=== PATIENT | female | born 1955 | race Caucasian/White ===

== ENCOUNTER 2017-11-08 11:12 | Inpatient (IN) | payer BC ==
[~2017-11-08] VITALS: Ht 165.1 cm; Wt 66.7 kg
[2017-11-08 11:47] LABS: CLARITY,URINE CLEAR (Clear); COLOR,URINE YELLOW (Yellow); GLUCOSE, URINE NEGATIVE (Neg); KETONES,URINE NEGATIVE (Neg); LEUKOCYTE ESTERASE ,URINE NEGATIVE (Neg); NITRITES, URINE NEGATIVE (Neg); OCCULT BLOOD,URINE NEGATIVE (Neg); PROTEIN,URINE NEGATIVE (Neg); UROBILINOGEN,URINE 0.2 E.U/dL (0.2-1.0)
[2017-11-08 11:49] LABS: UA COLLECTION TYPE CLN CATCH MIDSTREAM
[2017-11-08] MEDS ORDERED: LEVO150T61 PO (12:54)
[2017-11-08] MEDS ORDERED: ASCO10007 PO (12:54)
[2017-11-08] MEDS ORDERED: CHOL50004 PO (12:54)
[2017-11-08] MEDS ORDERED: OMEG-143 PO (12:54)
[2017-11-08] MEDS ORDERED: ASPI-1264 PO (12:54)
[2017-11-12] VITALS (17 sets, daily range): BP systolic 117–136; BP diastolic 54–88
[2017-11-12] MEDS ORDERED: ringers solution, lacted 1,000 ML IV SCH (05:00)
[2017-11-12] MEDS ORDERED: tranexamic acid inj. 1,000 MG in normal saline 100ml IV soln 90 ML IV ONE (05:30)
[2017-11-12] MEDS ORDERED: gabapentin 300mg capsule PO ONE (05:30)
[2017-11-12] MEDS ORDERED: oxyCODONE SR 10mg (sust. release) tab PO ONE (05:30)
[2017-11-12] MEDS ORDERED: acetaminophen 325mg tablet PO ONE (05:30)
[2017-11-12] MEDS ORDERED: famotidine 20mg tablet PO ONE (05:30)
[2017-11-12] MEDS ORDERED: ceFAZolin inj. 2,000 MG in dextrose 5%-water 100 ML IV SCH (05:30)
[2017-11-12] MEDS ORDERED: ceFAZolin inj. 2,000 MG in dextrose 5%-water 100 ML IV ONE (05:58)
[2017-11-12] MEDS ORDERED: LIDOcaine 1% (10mg/ml) 2ml vial ONE (06:00)
[2017-11-12] MEDS ORDERED: ROPIVAcaine 0.5% (5mg/ml) 30ml vial ONE ×2 (06:41→07:03)
[2017-11-12] MEDS ORDERED: bacitracin inj 150,000 UNIT in sodium chloride irrig. sol 3,000 ML IR ONE (07:00)
[2017-11-12] MEDS ORDERED: BUPIVAcaine 0.5% inj/PF 30 ml vial ONE (07:03)
[2017-11-12] MEDS ORDERED: propofol 1000mg/100ml bottle 100 ML IV ONE (07:04)
[2017-11-12] MEDS ORDERED: MIDAZolam 1mg/ml 10ml vial ONE (07:09)
[2017-11-12] MEDS ORDERED: morphine /PF 1mg/ml 10ml inj. ONE (07:18)
[2017-11-12] MEDS ORDERED: ringers solution, lacted 1,000 ML IV ONE (07:54)
[2017-11-12] MEDS ORDERED: meperidine/PF 50mg/ml syringe IV ONE (07:55)
[2017-11-12] MEDS ORDERED: ondansetron/PF 4mg/2ml inj IV PRN ×2 (07:55)
[2017-11-12] MEDS ORDERED: hydrALAZINE 20mg/ml inj. IV PRN (07:55)
[2017-11-12] MEDS ORDERED: labetalol 20mg/4ml (5mg/ml) syringe IV PRN (07:55)
[2017-11-12] MEDS ORDERED: diphenhydrAMINE 50 mg/ml inj IV PRN (07:55)
[2017-11-12] MEDS ORDERED: meperidine/PF 50mg/ml syringe IV PRN ×2 (07:55)
[2017-11-12] MEDS ORDERED: morphine 4 MG/ML inj SYRINge IV PRN ×2 (07:55)
[2017-11-12] MEDS ORDERED: ceFAZolin 1000mg inj ONE (08:56)
[2017-11-12] MEDS ORDERED: magnesium hydroxide 30ml (MOM) UD suspension PO PRN (09:25)
[2017-11-12] MEDS ORDERED: diphenhydrAMINE 25mg capsule PO PRN ×2 (09:25)
[2017-11-12] MEDS ORDERED: acetaminophen 325mg tablet PO PRN (09:25)
[2017-11-12] MEDS ORDERED: HYDROmorphone inj. 0.5 MG/0.5 ML DISP.SYRIN IV PRN (09:25)
[2017-11-12] MEDS ORDERED: bisacodyl 10mg suppository rectal RC PRN (09:25)
[2017-11-12] MEDS: potassium cl 20mEq in 1/2 NS 1,000 ML IV SCH ×2 (11:13→20:14)
[2017-11-12] MEDS: gabapentin 300mg capsule PO SCH ×2 (13:48→20:15)
[2017-11-12] MEDS: oxyCODONE/APAP 10/325mg tablet PO PRN ×3 (13:52→22:05)
[2017-11-12] MEDS: ceFAZolin 1GM/D5W- ADD-VANTAGE 50 ML IV SCH (16:28)
[2017-11-12] MEDS: ondansetron/PF 4mg/2ml inj IV PRN ×2 (16:38→22:08)
[2017-11-12] MEDS ORDERED: proCHLORperazine 10 MG/2 ml inj IV PRN ×2 (18:00→20:50)
[2017-11-12] MEDS ORDERED: MORPHINE 2MG in 2ml NS syringe IV PRN (18:00)
[2017-11-12] MEDS: sennosides 8.6mg tablet PO SCH (20:14)
[2017-11-12] MEDS: ascorbic acid 500mg tablet PO SCH (20:15)
[2017-11-13] MEDS: ceFAZolin 1GM/D5W- ADD-VANTAGE 50 ML IV SCH (00:16)
[2017-11-13] MEDS: potassium cl 20mEq in 1/2 NS 1,000 ML IV SCH ×4 (01:23→19:42)
[2017-11-13 02:00] VITALS: BP 100/47
[2017-11-13] MEDS: oxyCODONE/APAP 10/325mg tablet PO PRN ×2 (02:42→07:44)
[2017-11-13 05:44] LABS: BASOPHILS % (AUTO) 0.1 % (0-1); EOSINOPHILS # (AUTO) 0.1 X10'3 (0-0.9); EOSINOPHILS % (AUTO) 1.8 % (0-6); HEMOGLOBIN 11.2 g/dl (12.0-16.0); LYMPHOCYTES # (AUTO) 1.3 X10'3 (1.1-4.8); LYMPHOCYTES % (AUTO) 19.6 % (21-51); MEAN CORPUSCULAR HEMOGLOBIN 31.7 PG (27.0-31.0); MEAN CORPUSCULAR HGB CONC 35.1 % (33.0-36.5); MEAN CORPUSCULAR VOLUME 90.5 FL (78-98); MEAN PLATELET VOLUME 8.4 FL (7.4-10.4); MONOCYTES # (AUTO) 0.7 X10'3 (0-0.9); MONOCYTES % (AUTO) 11.4 % (2-12); NEUTROPHILS # (AUTO) 4.3 X10'3 (1.8-7.7); NEUTROPHILS % (AUTO) 67.1 % (42-75); PLATELET COUNT 157 X10'3 (140-440); RED BLOOD COUNT 3.53 X10'6 (4.20-5.60); RED CELL DISTRIBUTION WIDTH 12.7 % (11.5-14.5); WHITE BLOOD COUNT 6.4 X10'3 (4.5-11.0)
[2017-11-13 05:54] LABS: INR 1.3 INR; PROTHROMBIN TIME 13.4 SECONDS (9.0-12.0)
[2017-11-13 05:56] LABS: ANION GAP 3 (8-16); CHLORIDE 103 MMOL/L (99-107); POTASSIUM 4.4 MMOL/L (3.5-5.1); SODIUM 136 MMOL/L (135-145); TOTAL CARBON DIOXIDE 29.7 MMOL/L (24-32)
[2017-11-13 06:26] VITALS: BP 106/48
[2017-11-13] MEDS: gabapentin 300mg capsule PO SCH ×3 (07:40→19:41)
[2017-11-13] MEDS: multivitamins, therapeutics tablet PO SCH (07:40)
[2017-11-13] MEDS: ascorbic acid 500mg tablet PO SCH ×2 (07:40→19:41)
[2017-11-13] MEDS: levoTHYROXINE 75mcg tablet PO SCH (07:43)
[2017-11-13 10:00] VITALS: BP 126/77
[2017-11-13] MEDS ORDERED: warfarin 5mg tablet PO ONE (10:00)
[2017-11-13] MEDS ORDERED: celeCOXIB 100mg capsule PO ONE (10:50)
[2017-11-13 14:00] VITALS: BP 122/52
[2017-11-13] MEDS ORDERED: Protein Shake (high protein) 240ml (8oz) cup PO SCH (18:00)
[2017-11-13] MEDS: celeCOXIB 100mg capsule PO SCH (19:41)
[2017-11-13] MEDS: sennosides 8.6mg tablet PO SCH (19:42)
[2017-11-13 22:00] VITALS: BP 130/59
[2017-11-14] MEDS: potassium cl 20mEq in 1/2 NS 1,000 ML IV SCH (03:07)
[2017-11-14] MEDS: oxyCODONE/APAP 10/325mg tablet PO PRN (05:30)
[2017-11-14 06:00] VITALS: BP 152/59
[2017-11-14 06:16] LABS: INR 1.5 INR; PROTHROMBIN TIME 15.8 SECONDS (9.0-12.0)
[2017-11-14 06:18] LABS: BASOPHILS % (AUTO) 0.4 % (0-1); EOSINOPHILS # (AUTO) 0.2 X10'3 (0-0.9); EOSINOPHILS % (AUTO) 2.6 % (0-6); HEMATOCRIT 33.4 % (35.0-45.0); HEMOGLOBIN 11.4 g/dl (12.0-16.0); LYMPHOCYTES # (AUTO) 1.2 X10'3 (1.1-4.8); MEAN CORPUSCULAR HEMOGLOBIN 31.8 PG (27.0-31.0); MEAN CORPUSCULAR HGB CONC 34.2 % (33.0-36.5); MEAN CORPUSCULAR VOLUME 92.9 FL (78-98); MEAN PLATELET VOLUME 8.5 FL (7.4-10.4); MONOCYTES # (AUTO) 0.8 X10'3 (0-0.9); MONOCYTES % (AUTO) 12.8 % (2-12); NEUTROPHILS % (AUTO) 64.2 % (42-75); PLATELET COUNT 164 X10'3 (140-440); RED CELL DISTRIBUTION WIDTH 12.6 % (11.5-14.5); WHITE BLOOD COUNT 6.2 X10'3 (4.5-11.0)
[2017-11-14] MEDS ORDERED: ASPI-1 PO (07:34)
[2017-11-14] MEDS ORDERED: CELE-193 PO (08:12)
[2017-11-14] MEDS: ascorbic acid 500mg tablet PO SCH (09:01)
[2017-11-14] MEDS: levoTHYROXINE 75mcg tablet PO SCH (09:01)
[2017-11-14] MEDS: celeCOXIB 100mg capsule PO SCH (09:02)
[2017-11-14] MEDS: gabapentin 300mg capsule PO SCH (09:02)
[2017-11-14] MEDS: multivitamins, therapeutics tablet PO SCH (09:02)
[2017-11-14] MEDS ORDERED: acetaminophen 325mg tablet PO PRN (09:25)
[2017-11-14] MEDS ORDERED: warfarin 3mg tablet PO ONE (10:00)
== END 2017-11-14 11:10 | disposition home health service (06) | DRG 470 ==
LOC: EDSTATUS 13:50 → PAS IN 11-12 05:21 → EDSTATUS 11-12 07:30 → ORTHO 4S 11-12 10:45
PROVIDERS: ADMIT Specialist; ATTEND Specialist
PROC: 0SRD0J9 Replacement of Left Knee Joint with Synthetic Substitute, Cemented, Open Approach (ICD-10-PCS; principal; 2017-11-12 07:05)
DX: M17.0 Bilateral primary osteoarthritis of knee (principal); D62 Acute posthemorrhagic anemia; E03.9 Hypothyroidism, unspecified; Z87.891 Personal history of nicotine dependence; Z79.899 Other long term (current) drug therapy; Z79.82 Long term (current) use of aspirin
CPT/HCPCS: 36415; 71046; 73560; 80051; 81003; 85025; 85610; 87070; 97110; 97116; 97162; 97530; A6449; A6455; A7000; C1713; C1758; C1776; J0690; J2250; J2274; J2405; J2704; J2795; J3490; J7030; J7060; J7120

== ENCOUNTER 2018-03-11 08:09 | Outpatient (CLI) | payer BC ==
[~2018-03-11 08:09] MED LIST: ASCO10007 PO; CHOL50004 PO; LEVO150T61 PO; OMEG-143 PO
[2018-03-11 09:02] LABS: BASOPHILS % (AUTO) 0.4 % (0-1); EOSINOPHILS # (AUTO) 0.1 X10'3 (0-0.9); EOSINOPHILS % (AUTO) 2.1 % (0-6); HEMATOCRIT 39.2 % (35.0-45.0); HEMOGLOBIN 13.3 g/dl (12.0-16.0); LYMPHOCYTES # (AUTO) 1.5 X10'3 (1.1-4.8); LYMPHOCYTES % (AUTO) 33.6 % (21-51); MEAN CORPUSCULAR HEMOGLOBIN 30.8 PG (27.0-31.0); MEAN CORPUSCULAR VOLUME 90.7 FL (78-98); MEAN PLATELET VOLUME 8.3 FL (7.4-10.4); MONOCYTES # (AUTO) 0.4 X10'3 (0-0.9); NEUTROPHILS # (AUTO) 2.5 X10'3 (1.8-7.7); NEUTROPHILS % (AUTO) 55.9 % (42-75); PLATELET COUNT 208 X10'3 (140-440); RED BLOOD COUNT 4.32 X10'6 (4.20-5.60); RED CELL DISTRIBUTION WIDTH 12.3 % (11.5-14.5); WHITE BLOOD COUNT 4.5 X10'3 (4.5-11.0)
[2018-03-11 09:03] LABS: CLARITY,URINE CLEAR (Clear); COLOR,URINE YELLOW (Yellow); GLUCOSE, URINE NEGATIVE (Neg); KETONES,URINE NEGATIVE (Neg); LEUKOCYTE ESTERASE ,URINE NEGATIVE (Neg); NITRITES, URINE NEGATIVE (Neg); OCCULT BLOOD,URINE NEGATIVE (Neg); PROTEIN,URINE NEGATIVE (Neg); UROBILINOGEN,URINE 0.2 E.U/dL (0.2-1.0)
[2018-03-11 09:04] LABS: UA COLLECTION TYPE CLN CATCH MIDSTREAM
[2018-03-11 09:09] LABS: INR 0.9 INR; PROTHROMBIN TIME 9.8 SECONDS (9.0-12.0)
[2018-03-11 09:22] LABS: ALANINE AMINOTRANSFERASE 23 U/L (12-78); ALBUMIN 3.7 G/DL (3.4-5.0); ALBUMIN/GLOBULIN RATIO 1.2 (1.1-1.5); ALKALINE PHOSPHATASE 65 IU/L (46-116); ANION GAP 3 (8-16); ASPARTATE AMINO TRANSFERASE 17 U/L (10-37); BILIRUBIN,TOTAL 0.4 MG/DL (0.1-1.0); BLOOD UREA NITROGEN 12 MG/DL (7-18); BUN/CREATININE RATIO 19.4 (6.6-38.0); CHLORIDE 105 MMOL/L (99-107); CREATININE 0.62 MG/DL (0.40-0.90); GLUCOSE 101 MG/DL (70-104); POTASSIUM 3.8 MMOL/L (3.5-5.1); SODIUM 139 MMOL/L (135-145); TOTAL PROTEIN 6.9 G/DL (6.4-8.2); eGFR > 90 ML/MIN
== END 2018-03-11 23:59 | disposition home or self-care (01) ==
LOC: LAB 08:09
PROVIDERS: ATTEND Specialist
DX: Z01.818 Encounter for other preprocedural examination (principal); Z51.81 Encounter for therapeutic drug level monitoring; N39.0 Urinary tract infection, site not specified; E03.9 Hypothyroidism, unspecified; Z87.891 Personal history of nicotine dependence
CPT/HCPCS: 36415; 80053; 81003; 84443; 85025; 85610; 87070